=== PATIENT | male | born 1955 | race Caucasian/White ===

== ENCOUNTER 2021-03-14 13:55 | Emergency (ER) | payer MEDICAID, SELFPAY ==
[2021-03-14 13:57] VITALS: BP 147/93; PULSE 113; RESP 20; TEMP 36.9; O2SAT 97; BMI 32.4
--- NOTE | 2021-03-14 14:25 | EDS_ITS ---
HPI History of Present Illness Chief Complaint: Upper Extremity Injury Informant: patient Narrative Narrative: Patient states that he woke up about 3 or so days ago with right elbow pain. He states he cannot move it because it hurts. Its not weak. Its not numb. He has no other area of complaint. He is able to walk normally. He denies fevers or chills. However he says he has been outside and he is hot a lot. No nausea vomiting. Motion makes it worse and keeping it still makes it better. He has never had anything like this before. He states he does not think he fell or hurt himself. He denies any medical problems, medications. He has allergy to lactose. No recent surgeries. Denies surgery in that area. [facility] Medical History Depression Home Medications oxycodone-acetaminophen [Percocet] 1 tab PO Q6H PRN 3 Days #12 tab 03/14/21 [Rx Last Taken Unknown] Allergy/AdvReac Type Severity Reaction Status Date / Time lactose AdvReac Abd Verified 03/14/21 14:02 cramps/diarrhea Social History Smoking Status: Never smoker ROS ROS ED Constitutional Constitutional ED: Denies frequent falls Eyes Eyes: Denies blurry vision ENT ENT ED: Denies rhinorrhea or sore throat Cardiovascular Cardiovascular: Denies chest pain or palpitations Respiratory/Chest Respiratory/Chest: Denies cough or dyspnea Gastrointestinal Gastrointestinal: Denies abdominal pain, nausea or vomiting Genitourinary Genitourinary ED: Denies hematuria Musculoskeletal Musculoskeletal: Reports other Details: See history of present illness. ; Denies back pain or neck pain Integumentary Reports other Details: Patient has an abrasion or breakdown of the skin in the upper right lateral arm. He states he either abraded it or sunburn irritated it and caused a breakdown. However, his pain is not located there it is in his elbow. Neurologic Neurologic: Denies headache(s) or weakness Endocrine Endocrinology: Denies polydipsia or polyuria Hematologic/Lymphatic Hematologic/Lymphatic: Denies easy bleeding or easy bruising Allergic/Immunologic Allergic/Immunologic ED: Denies urticaria EXAM Physical Exam Const Vital Signs: 09/01/21 13:57 Temperature 98.4 F Temperature Source Oral Pulse Rate 113 H Respiratory Rate 20 H Blood Pressure 147/93 H Blood Pressure Mean 111 Pulse Ox 97 Oxygen Delivery Method Room Air Positive well nourished and well developed General Appearance ED: well developed HEENT Denies moist mucous membranes HEENT Narrative: Patient has a swollen soft area in the mid forehead that he states has been there for almost 10 years from a prior injury. No other abnormality. Mucous membranes are minimally dry. Eyes EOMs intact bilaterally Neck full ROM Neck Narrative: No pain with motion of the neck. No radicular symptoms. Note that there is a firm skin lesion toward the base of the right neck. He states that has been there for at least 3 or 5 years and not changed. He does not know what the source of it is. It is not new and has not changed recently. Chest Wall inspection of chest normal Resp normal respiratory effort and clear to auscultation bilaterally Cardio regular rhythm and no murmurs Rate: tachycardic GI non-tender and non-distended Palpation: soft Back/Spine no CVA tenderness Extremity Extremity Narrative: Upper extremities are sunburn from upper arms on down. Right arm is definitely larger than the left mostly from mid humerus to proximal forearm. There is a lot of erythema and warmth of the skin but it is hard to say as the significant sunburn or some cellulitis. There is some slight breakdown of the skin at the upper edge laterally but it does not look to be acutely infected. Any flexion extension or pronation supination of the elbow does cause a fair amount of pain. It does seem to be located within his elbow rather than within the soft tissue diffusely. I feel no crepitance. Distal pulses claim investigator strength and sensation are normal and intact. Neuro oriented x3 Neuro Narrative: Despite difficulty moving right arm, this appears to be mechanical and not neurologic in source. Sensorium / Orientation: alert Psych mental status grossly normal Skin Skin Narrative: See above. MDM MDM MDM Narrative Medical decision making narrative: We discussed case through secure messaging with Dr. Mayorga. We also shared the x-rays. He was initially worked up as p ossible infection because he denied any history of trauma. He now states he could have hurt himself. His memory is bad on things like this. He does not have an elevated white count or ESR. He has no fevers or chills. He does have a high CRP but there are many things that can cause this. Recommendation is to do a CT scan, posterior splint and he will follow up as an outpatient. I went and talked with the patient. He still states he is not sure what happened. Somebody could have hurt him but he does not specifically recall. I told him we are going to do further imaging. He then tells me that sometimes his hand and arm seems to change color over the last few days. He has a good pulse and capillary refill at this time. However, we did do a CTA to make sure there was no arterial injury because I really have no idea what happened to cause his fracture. Happily, there is no vascular injury. CT does show the fracture. We had social work see him. Patient is going to be renting a room for $350 a month. He does not want to go to a facility right now. He has a place to stay until he gets the room rented tomorrow. I will write for some pain meds. I encouraged him to follow-up. He needs to make a phone call for orthopedic follow-up. If he has any difficulties getting this done, pain, numbness or any concerns or changes he should come back. Procedure: Splint of arm I discussed risks and benefits. We placed a 5 inch fiberglass molded splint long-arm to include his hand to avoid pronation supination. He this was placed with gentle Juan wrap to avoid being too tight. We checked him afterwards. He still has excellent capillary refill sensation and motion of his fingertips. Discharge Plan Triage Chief Complaint: Upper Extremity Injury ED Provider: Severo Bocanegra Dx/Rx/DC Orders Clinical Impression: Fracture, supracondylar, elbow, right, closed Instructions: ED Elbow Fracture Prescriptions: New oxycodone-acetaminophen [Percocet] 5-325 mg tablet 1 tab PO Q6H PRN (Reason: pain) 3 Days Qty: 12 RF: 0 Primary Care Provider: Care Physician,No Primary Referrals: Zan Self DO [STAFF PHYSICIAN] - As soon as possible (Call within the next 1 day for the first available appointment. This should be in less than 1 week.) Care Physician,No Primary [Primary Care Provider] -
[2021-03-14] MEDS: 0.9% Normal Saline 1,000 ML 1000 ML IV (14:33)
[2021-03-14] MEDS: Morphine 4 MG/ML Syringe IV (14:33)
--- NOTE | 2021-03-14 14:53 | RAD_ITS ---
STUDY: X-RAY - RIGHT ELBOW REASON FOR EXAM: Male, 65 years old. pain, swelling TECHNIQUE: 3 view(s) of the elbow. COMPARISON: None. FINDINGS: Acute slightly anteriorly displaced oblique fracture of the supracondylar humerus. Normal radiocapitellar and ulnotrochlear articulations. The soft tissue structures are unremarkable. RAD/Elbow min 3 Views IMPRESSION: Acute slightly anteriorly displaced oblique fracture of the supracondylar humerus. Electronically Signed: Gurmeet Cordero MD at 15:11 EDT Tel , Service support ,
[2021-03-14 15:03] LABS: Erythrocyte Sedimentation Rate 20 mm/hr (0-20)
[2021-03-14 15:04] LABS: Absolute Lymphocyte Count 2.06 X10^3/uL (0.83-4.51); Absolute Neutrophil Count 5.1 X10^3/uL (2.0-7.7); Basophil# 0.06 X10^3/uL; Basophil% 0.7 % (0-1); Eosinophil# 0.04 X10^3/uL; Eosinophils% 0.5 % (0-5); Hemoglobin 15.1 g/dL (13.0-16.5); Lymphocyte # 2.06 X10^3/ul (0.83-4.51); Lymphocyte % 25.2 % (19-41); Mean Corp Hgb Conc 34.3 g/dL (32-36); Mean Corpuscular Hgb 31.9 pg (27.0-32.0); Mean Corpuscular Volume 92.8 fL (80-94); Mean Platelet Vol. 11.2 fl (6.2-12.0); Monocyte# 0.91 X10^3/uL; Monocyte% 11.2 % (0-10); NRBC Flagged by Analyzer 0 % (0-5); Neutrophil # 5.07 X10^3/uL (2.7-7.7); Neutrophil % 62.2 % (47-70); Platelet Count 240 K/mm3 (150-450); RBC Distribution Width CV 13.7 % (11.6-14.6); RBC Distribution Width SD 46.9 fl (35.1-43.9); Red Blood Count 4.74 M/mm3 (4.6-6.2); White Blood Count 8.2 K/mm3 (4.4-11.0)
[2021-03-14 15:23] LABS: ALB/GLOB Ratio 0.9 RATIO (0.9-2.4); AST(SGOT) 26 U/L (15-37); Alanine Aminotransfer ALT/SGPT 32 U/L (16-61); Albumin, Serum 3.6 g/dL (3.2-5.0); Alkaline Phosphatase 68 U/L (45-117); Anion Gap 12 (5-15); BUN 10 mg/dL (7-18); BUN/Creat Ratio 10.4 RATIO (10-20); Calcium,Total 9.1 mg/dL (8.5-10.1); Chloride 105 mmol/L (98-107); Creatinine, Serum 0.96 mg/dL (0.70-1.30); EST Glomerular Filtration Rate 84 mL/min (>60); Est Glom Filt Rate - Afr Amer 101 mL/min (>60); Estimated Creatinine Clearance 85.32 ml/min; Glucose 96 mg/dL (74-106); Potassium 3.6 mmol/L (3.5-5.1); Protein, Total 7.6 g/dL (6.4-8.2); Sodium Level 138 mmol/L (136-145)
--- NOTE | 2021-03-14 15:42 | CT_ITS ---
STUDY: CTA RIGHT UPPER EXTREMITIES REASON FOR EXAM: Male, 65 years old. trauma RADIATION DOSAGE (If Supplied By Facility): CTDIvol = ( 37.28 ) mGy, DLP = ( 2745.49 ) mGycm TECHNIQUE: Axial CT angiography, multi-detector data acquisition was obtained from the neck base through the hands following intravenous administration of IV 100mL [id number]-[id number]. mm axial images and MIP images were reconstructed from the axial data set. Post-processing of the angiographic images was performed, with multiplanar reformation and 3D reconstruction. Individualized dose optimization techniques were used for this CT. COMPARISON: None. FINDINGS: THORACIC AORTA: Normal visualized ascending thoracic aorta, without soft or calcific atherosclerotic plaque formation, luminal stenosis or aneurysm. Normal visualized aortic arch, without soft or calcific atherosclerotic plaque formation, or luminal stenosis or aneurysm. Normal branching pattern of the great vessels. Normal visualized descending thoracic aorta, without soft or calcific atherosclerotic plaque formation, luminal stenosis or aneurysm. Normal origins of the brachiocephalic, left common carotid, and left subclavian arteries from the aortic arch, without soft or calcific atherosclerotic plaque formation or luminal stenosis. Normal visualized common carotid arteries, without soft or calcific atherosclerotic plaque formation or luminal stenosis. Normal visualized pulmonary parenchyma. Normal visualized mediastinum. Normal supraclavicular region without lymphadenopathy or soft tissue mass. Normal axillary region, without lymphadenopathy or soft tissue mass. Normal visualized osseous structures without a demonstrated destructive process. RIGHT UPPER EXTREMITY: Normal subclavian artery, without soft or calcific atherosclerotic plaque formation, luminal stenosis or aneurysm. Normal visualized right vertebral artery arising from the right subclavian artery. Normal axillary artery, without soft or calcific atherosclerotic plaque formation, luminal stenosis or aneurysm. Normal brachial artery, without soft or calcific atherosclerotic plaque formation, luminal stenosis or aneurysm. Normal brachial trifurcation. Normal radial artery, continuous with the palmar arch, without atherosclerotic plaque formation, luminal stenosis or aneurysm. Normal ulnar artery, continuous with the palmar arch, without atherosclerotic plaque formation, luminal stenosis or aneurysm. Normal interosseous artery, continuous to the wrist, without atherosclerotic plaque formation, luminal stenosis or aneurysm. Normal visualized deep and superficial palmar arches and digital arteries. Normal osseous, muscular and subcutaneous structures in the right upper extremity. . CT/CTA Upper Ext W/WO Contrast IMPRESSION: Normal CT angiogram of the right upper extremity. Electronically Signed: Gurmeet Cordero MD at 16:23 EDT Tel , Service support ,
[2021-03-14 16:00] VITALS: BP 136/90; PULSE 115; RESP 16; O2SAT 96
--- NOTE | 2021-03-14 17:45 | CM.ED ---
SOCIAL WORK Referral Source: Awais with Adult Protective Services Reason for Consult: Discharge Planning Received call from Awais with [facility] prior to patient arrival updating patient coming in. Awais requested update on disposition as patient is homeless. Call to [facility] to check on availability for correction. Worker reports unable to accept patient tonight, but can come in tomorrow at 10am have lunch and complete intake. Met with patient in room. Introduced role and reason for referral. Patient reports has been homeless and finds vacant buildings to stay in. Patient reports tomorrow will be renting a room from a friend. Patient reports has money and will take a taxi to [facility]. Patient given information on [facility] and states, I don't like staying with groups of people. I have a place after 11am tomorrow. Patient reports does have money for hotel, but does not wish to use his money on a hotel room. Additional resources provided to patient. Plan: Homeless, resources provided Esteban Easley MSW, PRODUCTION MATERIAL COORDINATOR
[2021-03-14 18:26] VITALS: BP 149/71; PULSE 67; RESP 15; O2SAT 98
== END 2021-03-14 18:38 | disposition home or self-care (01) ==
PROVIDERS: Emergency Provider Emergency Medicine
DX: S42.411A Displaced simple supracondylar fracture without intercondylar fracture of right humerus, initial encounter for closed fracture (principal); X58.XXXA Exposure to other specified factors, initial encounter
CPT/HCPCS: 73080; 73206; 80053; 85025; 85652; 86140; 87040; 96374; 99285; J7030; Q9967; A4216